=== PATIENT | female | born 1995 | race Caucasian/White ===

== ENCOUNTER 2017-05-26 11:58 | Day surgery (SDC) | payer OTHER ==
[~2017-05-26] VITALS: Ht 165.1 cm; Wt 78.9 kg
[2017-05-26 12:20] VITALS: BP 131/73; PULSE 68; TEMP 98.3
[2017-05-26] MEDS ORDERED: [UNRECOGNIZED DRUG - OTHER] PO (12:24)
[2017-05-26 14:19] VITALS: BP 118/79; PULSE 71; TEMP 98
[2017-05-26 14:30] VITALS: BP 117/89; PULSE 69
[2017-05-26] MEDS ORDERED: BUSPAR10 MG PO (14:44)
[2017-05-26 14:45] VITALS: BP 113/77; PULSE 71
[2017-05-26] MEDS ORDERED: PROBIOTIC FORMU1 CAP PO (14:45)
== END 2017-05-26 15:10 | disposition home or self-care (01) ==
LOC: SDCO 11:58
DX: K64.0 First degree hemorrhoids (principal); R11.2 Nausea with vomiting, unspecified; R19.7 Diarrhea, unspecified; Z83.79 Family history of other diseases of the digestive system
CPT/HCPCS: OP; J2704; J3010; J7030